=== PATIENT | female | born 2000 | race African-American/Black ===

== ENCOUNTER 2025-06-25 02:56 | Emergency (ER) | payer OTHER ==
[~2025-06-25] VITALS: Ht 170.2 cm; Wt 77.0 kg
[2025-06-25 02:58] VITALS: O2SAT 100
[2025-06-25] MEDS ORDERED: TETRACAINE 0.5% OPHTH DROPS 4ML EACHEYE ONE (03:15)
[2025-06-25] MEDS ORDERED: TETRACAINE 0.5% OPHTH DROPS 4ML ONE (03:44)
[2025-06-25] MEDS: ACETAMINOPHEN 325MG TABLET PO ONE (05:09)
[2025-06-25] MEDS: TETANUS, DIPHTHERIA, PERTUSSIS VAC/PF 0.5ML (>10YR OLD) IM ONE (05:10)
[2025-06-25] MEDS ORDERED: ACET-2708 MT (05:41)
[2025-06-25] MEDS ORDERED: IBUP-2028 MT (05:41)
[2025-06-25 06:02] VITALS: BP 114/65; PULSE 105; RESP 20; TEMP 36.9; O2SAT 100
== END 2025-06-25 06:06 | disposition home or self-care (01) ==
LOC: ER 02:56
DX: S01.411A Laceration without foreign body of right cheek and temporomandibular area, initial encounter (principal); D69.6 Thrombocytopenia, unspecified; X58.XXXA Exposure to other specified factors, initial encounter; Y93.89 Activity, other specified; Y92.89 Other specified places as the place of occurrence of the external cause; Y99.8 Other external cause status
CPT/HCPCS: 12011; 70486; 90471; 90715; 99285